=== PATIENT | male | born 1950 | race Caucasian/White ===

== ENCOUNTER 2016-07-02 14:53 | Inpatient (IN) | payer OTHER ==
[~2016-07-02] VITALS: Ht 175.3 cm; Wt 69.2 kg
[2016-07-02 16:02] LABS: EOSINOPHIL (%) 0.1 % (0-5); HEMATOCRIT 40.8 % (38.0-50.0); IMMATURE GRANULOCYTE (%) 0.5 % (0.0-0.7); IMMATURE GRANULOCYTE COUNT 0.1 K/uL; INSTRUMENT ABS NEUTROPHIL CT 10.6 K/uL; LYMPHOCYTE COUNT 0.6 K/uL (1.0-2.8); MCV 88.7 FL (86-99); MEAN PLAT.VOLUME 9.3 uM^3 (9.0-12.4); MONOCYTE (%) 10.2 % (3-12); MONOCYTE COUNT 1.3 K/uL (0-0.8); NEUTROPHIL (%) 84.1 % (45-76); NEUTROPHIL COUNT 10.6 K/uL (1.8-6.4); PLATELET COUNT 166 K/uL (156-360); RBC DIS.WIDTH-SD 38.8 % (39-53); WHITE BLOOD COUNT 12.6 K/uL (4.1-10.2)
[2016-07-02 16:02] LABS: CARBON DIOXIDE (BICARBONATE) 27.6 MEQ/L (20-31)
[2016-07-02 16:15] LABS: CHLORIDE 96 mEq/L (99-109); SODIUM 130 mEq/L (136-147)
[2016-07-02 16:18] LABS: GLUCOSE 301 mg/dL (70-99)
[2016-07-02 16:19] LABS: ANION GAP 12 MEQ/L (2-14)
[2016-07-02 16:20] LABS: TOTAL BILIRUBIN 1.3 mg/dL (0.0-1.0)
[2016-07-02 16:21] LABS: ALKALINE PHOSPHATASE 114 IU/L (3-129); GFR ESTIMATE (CALCULATED) > 59 mL/min/
[2016-07-02 16:22] LABS: UREA NITROGEN (BUN) 15 mg/dL (9-23)
[2016-07-02 17:42] LABS: ADD MIUA? YES; BILIRUBIN NEGATIVE; BLOOD MODERATE; COLOR YELLOW ((YELLOW)); GLUCOSE (STRIP) >=500; KETONES NEGATIVE; LEUKOCYTES NEGATIVE; NITRITE NEGATIVE; PROTEIN (STRIP) 100; SPECIFIC GRAVITY 1.025 (1.000-1.030)
[2016-07-02 17:53] LABS: BACTERIA NONE SEEN /HPF; EPITHELIAL CELLS RARE /HPF; MUCUS NONE SEEN /LPF; RED BLOOD CELLS 0-5 /HPF (0-5); UCUL ADDED? NO; WHITE BLOOD CELLS 0-5 /HPF (0-5)
[2016-07-02] MEDS ORDERED: TYLENOL REGULA325 MG PO (18:05)
[2016-07-02 19:08] LABS: APPEARANCE CLEAR/COLORLESS; RED CELL COUNT 2 /MM^3 (0-1); RED CELL DILUTION 1
[2016-07-02 19:09] LABS: WBC DILUTION 1; WHITE CELL COUNT 1 /MM^3 (0-5); WHITE CELL RAW COUNT 2
[2016-07-02 19:10] LABS: CSF EOSINOPHILS ND % (0-25); MONONUCLEAR WBC'S ND % (50-90); POLYNUCLEAR WBC'S ND % (0-3)
[2016-07-02 22:11] LABS: POINT-OF-CARE METER ID UU13113781
[2016-07-02 23:50] VITALS: BP 151/79
[2016-07-03 04:00] VITALS: BP 175/108
[2016-07-03 06:56] LABS: HEMATOCRIT 34.8 % (38.0-50.0); MCH 31.8 PG (29.0-34.0); MCHC 35.3 G/DL (30.0-36.0); MCV 89.9 FL (86-99); MEAN PLAT.VOLUME 9.2 uM^3 (9.0-12.4); PLATELET COUNT 147 K/uL (156-360); RBC DIS.WIDTH-CV 12.1 % (11.8-14.6); RBC DIS.WIDTH-SD 39.9 % (39-53); RED BLOOD COUNT 3.87 M/uL (4.00-5.50); WHITE BLOOD COUNT 11.2 K/uL (4.1-10.2)
[2016-07-03 07:03] LABS: ANION GAP 8 MEQ/L (2-14); CHLORIDE 99 MEQ/L (99-109); GFR ESTIMATE (CALCULATED) > 59 mL/min/; GLUCOSE 235 mg/dL (70-99); POTASSIUM 3.6 MEQ/L (3.7-5.4); SAMPLE HEMOLYSIS CHECK 0; SAMPLE ICTERIC CHECK 0; SAMPLE LIPEMIA CHECK 0; SODIUM 132 MEQ/L (136-147); UREA NITROGEN (BUN) 12 mg/dL (9-23)
[2016-07-03 08:08] LABS: Estimated Average Glucose 258 mg/dL (70-123); HEMOGLOBIN A1c (GLYCOHEMOGLOB) 10.6 % HGB (Below 5.7)
[2016-07-03 08:12] LABS: POINT-OF-CARE METER ID UU14174216
[2016-07-03 08:21] VITALS: BP 165/91
[2016-07-03 08:59] LABS: ALKALINE PHOSPHATASE 93 IU/L (3-129); DIRECT BILIRUBIN 0.4 mg/dL (0.0-0.3); TOTAL BILIRUBIN 0.9 MG/DL (0.0-1.0)
[2016-07-03 12:47] VITALS: BP 194/100
[2016-07-03 13:04] LABS: POINT-OF-CARE METER ID UU14174216
[2016-07-03 16:46] VITALS: BP 161/106
[2016-07-03 17:05] LABS: POINT-OF-CARE USER ID ENVKC36
[2016-07-03 18:03] VITALS: BP 151/81
[2016-07-03 19:50] VITALS: BP 136/67
[2016-07-04] VITALS (7 sets, daily range): BP systolic 136–174; BP diastolic 82–102
[2016-07-04 06:51] LABS: HEMATOCRIT 37.8 % (38.0-50.0); MCH 31.9 PG (29.0-34.0); MCHC 35.4 G/DL (30.0-36.0); MEAN PLAT.VOLUME 9.2 uM^3 (9.0-12.4); PLATELET COUNT 183 K/uL (156-360); RBC DIS.WIDTH-CV 12.5 % (11.8-14.6); WHITE BLOOD COUNT 9.1 K/uL (4.1-10.2)
[2016-07-04 07:19] LABS: ALKALINE PHOSPHATASE 98 IU/L (3-129); ANION GAP 9 MEQ/L (2-14); CHLORIDE 100 MEQ/L (99-109); DIRECT BILIRUBIN 0.4 mg/dL (0.0-0.3); GFR ESTIMATE (CALCULATED) > 59 mL/min/; GLUCOSE 194 mg/dL (70-99); MAGNESIUM 1.6 mg/dl (1.3-2.7); POTASSIUM 4.3 MEQ/L (3.7-5.4); SAMPLE HEMOLYSIS CHECK 0; SAMPLE ICTERIC CHECK 0; SAMPLE LIPEMIA CHECK 0; SODIUM 135 MEQ/L (136-147); TOTAL BILIRUBIN 0.8 MG/DL (0.0-1.0); UREA NITROGEN (BUN) 10 mg/dL (9-23)
[2016-07-04 21:15] LABS: POINT-OF-CARE METER ID UU13113781
[2016-07-05 03:20] VITALS: BP 150/88
[2016-07-05 07:02] LABS: HEMATOCRIT 39.7 % (38.0-50.0); MCH 32.1 PG (29.0-34.0); MCHC 35.5 G/DL (30.0-36.0); MCV 90.4 FL (86-99); MEAN PLAT.VOLUME 9.1 uM^3 (9.0-12.4); PLATELET COUNT 185 K/uL (156-360); RBC DIS.WIDTH-CV 12.4 % (11.8-14.6); RBC DIS.WIDTH-SD 41.5 % (39-53); RED BLOOD COUNT 4.39 M/uL (4.00-5.50); WHITE BLOOD COUNT 6.9 K/uL (4.1-10.2)
[2016-07-05 07:35] LABS: ALKALINE PHOSPHATASE 103 IU/L (3-129); ANION GAP 9 MEQ/L (2-14); CHLORIDE 98 MEQ/L (99-109); GFR ESTIMATE (CALCULATED) > 59 mL/min/; GLUCOSE 177 mg/dL (70-99); MAGNESIUM 1.7 mg/dl (1.3-2.7); POTASSIUM 4.4 MEQ/L (3.7-5.4); SAMPLE HEMOLYSIS CHECK 0; SAMPLE ICTERIC CHECK 0; SAMPLE LIPEMIA CHECK 0; SODIUM 134 MEQ/L (136-147); TOTAL BILIRUBIN 0.8 MG/DL (0.0-1.0); UREA NITROGEN (BUN) 11 mg/dL (9-23)
[2016-07-05 07:43] LABS: POINT-OF-CARE METER ID UU14174216
[2016-07-05 08:00] VITALS: BP 133/86
[2016-07-05 11:24] LABS: POINT-OF-CARE METER ID UU14174216
[2016-07-05 12:00] VITALS: BP 131/92
[2016-07-05 15:57] VITALS: BP 128/78
[2016-07-05 20:00] VITALS: BP 179/96
[2016-07-06] VITALS (7 sets, daily range): BP systolic 107–166; BP diastolic 65–92
[2016-07-06 07:02] LABS: ANION GAP 8 MEQ/L (2-14); CHLORIDE 96 MEQ/L (99-109); GFR ESTIMATE (CALCULATED) > 59 mL/min/; GLUCOSE 171 mg/dL (70-99); MAGNESIUM 1.8 mg/dl (1.3-2.7); POTASSIUM 4.9 MEQ/L (3.7-5.4); SAMPLE HEMOLYSIS CHECK 0; SAMPLE ICTERIC CHECK 0; SAMPLE LIPEMIA CHECK 0; SODIUM 133 MEQ/L (136-147); UREA NITROGEN (BUN) 16 mg/dL (9-23)
[2016-07-06 07:48] LABS: POINT-OF-CARE METER ID UU14174216
[2016-07-06 11:53] LABS: POINT-OF-CARE METER ID UU14174216
[2016-07-06 16:52] LABS: POINT-OF-CARE METER ID UU14174216
[2016-07-06 21:09] LABS: POINT-OF-CARE METER ID UU13113781
[2016-07-07 00:38] VITALS: BP 108/61
[2016-07-07 04:23] VITALS: BP 138/83
[2016-07-07 07:20] VITALS: BP 147/78
[2016-07-07 07:49] LABS: POINT-OF-CARE METER ID UU13113781
[2016-07-07 11:13] LABS: POINT-OF-CARE METER ID UU13113781
[2016-07-07 11:59] VITALS: BP 107/64
[2016-07-07] MEDS ORDERED: LISINOPRIL5 MG PO (13:13)
[2016-07-07] MEDS ORDERED: LEVEMIR100 UNIT/2 SC (13:13)
[2016-07-07] MEDS ORDERED: LOPRESSOR25 MG PO (13:13)
== END 2016-07-07 16:10 | disposition home or self-care (01) | DRG 871 ==
LOC: EME → EDBD 14:53 → EME 14:53 → EDOF 19:09 → 4EAST 19:09
PROVIDERS: Emergency Medicine; Hospitalist
PROC: 009U3ZX Drainage of Spinal Canal, Percutaneous Approach, Diagnostic (ICD-10-PCS; principal; 2016-07-02)
DX: A40.9 Streptococcal sepsis, unspecified (principal); I76 Septic arterial embolism; I33.0 Acute and subacute infective endocarditis; I74.9 Embolism and thrombosis of unspecified artery; E11.65 Type 2 diabetes mellitus with hyperglycemia; E87.1 Hypo-osmolality and hyponatremia; G45.9 Transient cerebral ischemic attack, unspecified; I10 Essential (primary) hypertension; S90.822A Blister (nonthermal), left foot, initial encounter; E87.6 Hypokalemia; I34.0 Nonrheumatic mitral (valve) insufficiency
CPT/HCPCS: 70450; 70551; 71010; 73720; 74177; 76937; 80048; 80053; 80076; 81003; 82803; 82945; 82948; 83036; 83605; 83735; 84157; 84443; 85025; 85027; 87040; 87070; 87077; 87186; 87205; 87801; 89051; 93005; 93306; 99281; 99285; J0360; J0696; J1815; J2270; J2540; J3370; J3475; J7030; J7050

== ENCOUNTER 2017-08-24 15:59 | Inpatient (IN) | payer OTHER ==
[~2017-08-24] VITALS: Ht 175.3 cm; Wt 68.8 kg
[~2017-08-24 15:59] MED LIST: LEVEMIR100 UNIT/2 SC; LISINOPRIL5 MG PO; LOPRESSOR25 MG PO; TYLENOL REGULA325 MG PO
[2017-08-24 16:27] LABS: BASOPHIL (%) 0.7 % (0-1); BASOPHIL COUNT 0.1 K/uL (0-0.1); EOSINOPHIL COUNT 0.2 K/uL (0-0.3); HEMATOCRIT 37.3 % (38.0-50.0); HEMOGLOBIN 13.4 G/DL (12.5-16.6); IMMATURE GRANULOCYTE (%) 0.6 % (0.0-0.7); LYMPHOCYTE (%) 25.2 % (15-42); LYMPHOCYTE COUNT 2.3 K/uL (1.0-2.8); MCH 31.5 PG (29.0-34.0); MCHC 35.9 G/DL (30.0-36.0); MCV 87.8 FL (86-99); MONOCYTE (%) 11.3 % (3-12); NEUTROPHIL (%) 60.2 % (45-76); NEUTROPHIL COUNT 5.4 K/uL (1.8-6.4); PLATELET COUNT 179 K/uL (156-360); RBC DIS.WIDTH-CV 12.5 % (11.8-14.6); RBC DIS.WIDTH-SD 39.8 % (39-53); RED BLOOD COUNT 4.25 M/uL (4.00-5.50); WHITE BLOOD COUNT 8.9 K/uL (4.1-10.2)
[2017-08-24 16:35] LABS: CHLORIDE 99 mEq/L (99-109); POTASSIUM 5.3 mEq/L (3.7-5.4); SODIUM 137 mEq/L (136-147)
[2017-08-24 16:36] LABS: GLUCOSE 154 mg/dL (70-99)
[2017-08-24 16:40] LABS: GFR ESTIMATE (CALCULATED) > 59 mL/min/ (58.99-99999)
[2017-08-24 16:41] LABS: UREA NITROGEN (BUN) 14 mg/dL (9-23)
[2017-08-24 17:27] LABS: APPEARANCE CLEAR ((CLEAR)); BILIRUBIN NEGATIVE; BLOOD NEGATIVE; COLOR YELLOW ((YELLOW)); GLUCOSE (STRIP) >=500; KETONES NEGATIVE; LEUKOCYTES NEGATIVE; NITRITE NEGATIVE; PROTEIN (STRIP) NEGATIVE; SPECIFIC GRAVITY 1.033 (1.000-1.030); UCUL ADDED? NO
[2017-08-24] MEDS ORDERED: ZESTRIL5 MG PO (18:26)
[2017-08-24] MEDS ORDERED: JARDIANCE25 MG PO (18:27)
[2017-08-24] MEDS ORDERED: AUGMENTIN875 MG PO (18:27)
[2017-08-24] MEDS ORDERED: LIPITOR20 MG PO (18:27)
[2017-08-24] MEDS ORDERED: VITAMIN D33000 UNIT PO (18:28)
[2017-08-24] MEDS ORDERED: LO-DOSE ASPIRIN81 M1 PO (18:28)
[2017-08-24 18:33] LABS: INTER. NORMALIZED RATIO 1.2
[2017-08-24 18:35] LABS: PTT 24.7 SEC (25-37)
[2017-08-24 18:42] LABS: LIPASE 256 U/L (1.0-51.0)
[2017-08-24 18:47] LABS: TROP-I INTERPRETATION NEGATIVE; TROPONIN-I < 0.01 ng/mL (0.0-0.30)
[2017-08-24 19:13] LABS: CREATINE KINASE 40 IU/L (1-294)
[2017-08-24 20:10] LABS: ALBUMIN 3.9 g/dL (3.2-4.8)
[2017-08-24 20:13] LABS: TOTAL PROTEIN 8.8 g/dL (6.4-8.3)
[2017-08-24 20:14] LABS: TOTAL BILIRUBIN 0.9 mg/dL (0.0-1.0)
[2017-08-24 20:15] LABS: ALKALINE PHOSPHATASE 121 IU/L (3-129)
[2017-08-24 20:18] LABS: AST (GOT) 55 IU/L (2-34); DIRECT BILIRUBIN 0.5 mg/dL (0.0-0.3)
[2017-08-24 20:19] LABS: ALT (GPT) 40 IU/L (3-49)
[2017-08-24 23:07] LABS: HDL CHOLESTEROL 21 MG/DL (Desirable>=40); LDL CHOLESTEROL 59 mg/dL (Desirable<100); NON-HDL CHOLESTEROL 95 mg/dL (Desirable<160); TOTAL CHOLESTEROL 116 mg/dL (Desirable<200); TRIGLYCERIDES 181 MG/DL (Normal: <150)
[2017-08-24 23:30] VITALS: BP 131/84
[2017-08-25 04:41] LABS: HEMATOCRIT 31.2 % (38.0-50.0); HEMOGLOBIN 11.2 G/DL (12.5-16.6); MCH 31.9 PG (29.0-34.0); MCHC 35.9 G/DL (30.0-36.0); MCV 88.9 FL (86-99); PLATELET COUNT 146 K/uL (156-360); RBC DIS.WIDTH-CV 12.4 % (11.8-14.6); RBC DIS.WIDTH-SD 39.3 % (39-53); RED BLOOD COUNT 3.51 M/uL (4.00-5.50); WHITE BLOOD COUNT 7.2 K/uL (4.1-10.2)
[2017-08-25 05:04] LABS: CHLORIDE 105 mEq/L (99-109); SODIUM 139 mEq/L (136-147)
[2017-08-25 05:09] LABS: CREATININE 0.6 mg/dL (0.6-1.3); GFR ESTIMATE (CALCULATED) > 59 mL/min/ (58.99-99999)
[2017-08-25 05:10] LABS: UREA NITROGEN (BUN) 8 mg/dL (9-23)
[2017-08-25 05:17] LABS: GLUCOSE 105 mg/dL (70-99); POTASSIUM 4.1 mEq/L (3.7-5.4)
[2017-08-25 05:44] VITALS: BP 112/56
[2017-08-25 07:13] VITALS: BP 129/82
[2017-08-25 11:25] VITALS: BP 123/75
[2017-08-25 16:27] VITALS: BP 117/72
[2017-08-25 19:15] VITALS: BP 112/65
[2017-08-25 23:17] VITALS: BP 120/66
[2017-08-26 03:44] VITALS: BP 105/68
[2017-08-26 05:21] LABS: HEMATOCRIT 30.3 % (38.0-50.0); HEMOGLOBIN 10.6 G/DL (12.5-16.6); MCH 31.4 PG (29.0-34.0); MCV 89.6 FL (86-99); PLATELET COUNT 137 K/uL (156-360); RBC DIS.WIDTH-CV 12.7 % (11.8-14.6); RBC DIS.WIDTH-SD 41.2 % (39-53); RED BLOOD COUNT 3.38 M/uL (4.00-5.50); WHITE BLOOD COUNT 6.1 K/uL (4.1-10.2)
[2017-08-26 05:50] LABS: CHLORIDE 106 MEQ/L (99-109); CREATININE 0.6 MG/DL (0.6-1.3); GFR ESTIMATE (CALCULATED) > 59 mL/min/ (58.99-99999); GLUCOSE 149 mg/dL (70-99); POTASSIUM 4.4 MEQ/L (3.7-5.4); SODIUM 139 MEQ/L (136-147); UREA NITROGEN (BUN) 11 mg/dL (9-23)
[2017-08-26 07:19] VITALS: BP 112/66
[2017-08-26 09:03] LABS: HEMOGLOBIN A1c (GLYCOHEMOGLOB) 9.1 % (Below 5.7)
[2017-08-26 11:09] VITALS: BP 110/69
[2017-08-26 15:13] VITALS: BP 108/69
[2017-08-26 19:45] VITALS: BP 115/68
[2017-08-26 23:47] VITALS: BP 111/64
[2017-08-27 03:20] VITALS: BP 140/77
[2017-08-27 09:41] VITALS: BP 102/66
[2017-08-27] MEDS ORDERED: CEFTRIAXONE2 G1 IV (10:41)
== END 2017-08-27 12:32 | disposition home or self-care (01) | DRG 871 ==
LOC: EME 15:59 → EDOF 21:42 → 4EAST 21:42 → ENRESERV 21:50 → 4EAST 23:07
PROVIDERS: Emergency Medicine; Hospitalist; Internal Medicine
DX: A40.9 Streptococcal sepsis, unspecified (principal); I76 Septic arterial embolism; I63.19 Cerebral infarction due to embolism of other precerebral artery; R29.810 Facial weakness; G83.14 Monoplegia of lower limb affecting left nondominant side; E87.2 Acidosis; E86.0 Dehydration; E11.65 Type 2 diabetes mellitus with hyperglycemia; I10 Essential (primary) hypertension; K76.0 Fatty (change of) liver, not elsewhere classified; E78.5 Hyperlipidemia, unspecified; D64.9 Anemia, unspecified; I35.8 Other nonrheumatic aortic valve disorders; Z86.19 Personal history of other infectious and parasitic diseases; Z86.79 Personal history of other diseases of the circulatory system; Z80.0 Family history of malignant neoplasm of digestive organs
CPT/HCPCS: 71046; 74177; 76705; 80048; 80061; 80076; 81003; 82550; 82565; 82948; 83036; 83605; 83690; 84484; 84520; 85025; 85027; 85610; 85730; 87040; 93005; 93306; 93880; 99281; 99285; J0696; J1650; J1815; J7030